=== PATIENT | male | born 1950 | race Caucasian/White ===

== ENCOUNTER 2022-03-07 12:21 | Outpatient (CLI) | payer MEDICARE | END 2022-03-07 12:22 | disposition home or self-care (01) | LOC: CSHULT 12:21 | PROVIDERS: ATTEND Internal Medicine Cardiovascular Disease | DX: E04.1 Nontoxic single thyroid nodule (principal) | CPT/HCPCS: 76536 ==

== ENCOUNTER → 2025-02-19 | Outpatient (CLI) | payer MEDICARE | LOC: CSHWCC 08:30 | PROVIDERS: ATTEND Nurse Practitioner Family | DX: I87.333 Chronic venous hypertension (idiopathic) with ulcer and inflammation of bilateral lower extremity (principal); E11.622 Type 2 diabetes mellitus with other skin ulcer; L97.822 Non-pressure chronic ulcer of other part of left lower leg with fat layer exposed; L97.812 Non-pressure chronic ulcer of other part of right lower leg with fat layer exposed; I25.810 Atherosclerosis of coronary artery bypass graft(s) without angina pectoris; I87.2 Venous insufficiency (chronic) (peripheral); Z85.528 Personal history of other malignant neoplasm of kidney | CPT/HCPCS: 15271; Q4133 ==

== ENCOUNTER 2025-02-26 09:29 | Outpatient (CLI) | payer MEDICARE | END 2025-02-26 09:30 | disposition home or self-care (01) | LOC: CSHWCC 09:29 | PROVIDERS: ATTEND Nurse Practitioner Family | DX: I87.333 Chronic venous hypertension (idiopathic) with ulcer and inflammation of bilateral lower extremity (principal); E11.622 Type 2 diabetes mellitus with other skin ulcer; L97.812 Non-pressure chronic ulcer of other part of right lower leg with fat layer exposed; L97.929 Non-pressure chronic ulcer of unspecified part of left lower leg with unspecified severity; I25.810 Atherosclerosis of coronary artery bypass graft(s) without angina pectoris; I87.2 Venous insufficiency (chronic) (peripheral); Z85.528 Personal history of other malignant neoplasm of kidney | CPT/HCPCS: 15271; Q4133 ==

== ENCOUNTER 2025-03-05 12:41 | Outpatient (CLI) | payer MEDICARE | END 2025-03-05 12:42 | disposition home or self-care (01) | LOC: CSHWCC 12:41 | PROVIDERS: ATTEND Nurse Practitioner Family | DX: I87.333 Chronic venous hypertension (idiopathic) with ulcer and inflammation of bilateral lower extremity (principal); E11.622 Type 2 diabetes mellitus with other skin ulcer; L97.812 Non-pressure chronic ulcer of other part of right lower leg with fat layer exposed; L97.929 Non-pressure chronic ulcer of unspecified part of left lower leg with unspecified severity; I25.810 Atherosclerosis of coronary artery bypass graft(s) without angina pectoris; I87.2 Venous insufficiency (chronic) (peripheral); Z85.528 Personal history of other malignant neoplasm of kidney | CPT/HCPCS: 99212; G0463 ==

== ENCOUNTER 2025-03-14 09:24 | Outpatient (CLI) | payer MEDICARE | END 2025-03-14 09:25 | disposition home or self-care (01) | LOC: CSHWCC 09:24 | PROVIDERS: ATTEND Nurse Practitioner Family | DX: Z08 Encounter for follow-up examination after completed treatment for malignant neoplasm (principal); Z85.528 Personal history of other malignant neoplasm of kidney; Z87.2 Personal history of diseases of the skin and subcutaneous tissue; I87.333 Chronic venous hypertension (idiopathic) with ulcer and inflammation of bilateral lower extremity; E11.622 Type 2 diabetes mellitus with other skin ulcer; L97.929 Non-pressure chronic ulcer of unspecified part of left lower leg with unspecified severity; L97.919 Non-pressure chronic ulcer of unspecified part of right lower leg with unspecified severity; I25.810 Atherosclerosis of coronary artery bypass graft(s) without angina pectoris; I87.2 Venous insufficiency (chronic) (peripheral) | CPT/HCPCS: 99212; G0463 ==